=== PATIENT | female | born 1995 | race Hispanic/Latino ===

== ENCOUNTER 2018-09-03 12:12 | Observation (INO) | payer MEDICAID ==
[~2018-09-03] VITALS: Ht 149.9 cm; Wt 57.2 kg
[~2018-09-03 12:12] MED LIST: IBUP-2070 PO; PNV1TABL77 PO
[2018-09-03 13:46] LABS: APPEARANCE,URINE Cloudy (CLEAR); BILIRUBIN,URINE Negative (NEGATIVE); COLOR,URINE Dark Yellow (YELLOW); GLUCOSE, URINE (UA) Negative (NEGATIVE); KETONES,URINE Trace mg/dL (NEGATIVE); LEUKOCYTE ESTERASE ,URINE Small (NEGATIVE); NITRATE,URINE Negative (NEGATIVE); OCCULT BLOOD,URINE Trace (NEGATIVE); PH,URINE 6.5 (5.0-8.0); PROTEIN,URINE Negative (NEGATIVE)
[2018-09-03 13:53] LABS: BACTERIA,URINE Rare /HPF (None Seen); RBC,URINE 0-1 /HPF (0-1); SQUAMOUS EPITHELIAL CELL,UR Rare /HPF (0-2); WBC,URINE 0-1 /HPF (0-1)
[2018-09-03 13:54] LABS: AMPHET/METH SCREEN,URINE NEGATIVE (NEGATIVE); BARBITURATE SCREEN, URINE NEGATIVE (NEGATIVE); BENZODIAZEPINES SCREEN,URINE NEGATIVE (NEGATIVE); CANNABINOID SCREEN,URINE POSITIVE (NEGATIVE); COCAINE SCREEN,URINE POSITIVE (NEGATIVE); OPIATE SCREEN,URINE NEGATIVE (NEGATIVE); PHENCYCLIDINE SCREEN,URINE NEGATIVE (NEGATIVE)
[2018-09-03 15:12] VITALS: BP 103/67
== END 2018-09-03 15:15 | disposition home or self-care (01) ==
LOC: EDH 12:12 → LDH 12:13
PROVIDERS: ADMIT Obstetrics & Gynecology; ATTEND Obstetrics & Gynecology
DX: O48.0 Post-term pregnancy (principal); O99.323 Drug use complicating pregnancy, third trimester; F12.10 Cannabis abuse, uncomplicated; F14.10 Cocaine abuse, uncomplicated; Z3A.40 40 weeks gestation of pregnancy; Z79.899 Other long term (current) drug therapy
CPT/HCPCS: 76805; 80305; 81001; 99285; G0378 ×3; J7120; 96360; 96361

== ENCOUNTER 2018-09-04 15:35 | Inpatient (IN) | payer MEDICAID ==
[~2018-09-04] VITALS: Ht 149.9 cm; Wt 57.2 kg
[2018-09-04] MEDS ORDERED: LACTATED RINGERS 1000ML 1,000 ML IV PRN (15:48)
[2018-09-04] MEDS ORDERED: AMPICILLIN 2GM+NS 100ML 100 ML IV ONE (15:56)
[2018-09-04 15:58] LABS: HEMATOCRIT 32.2 % (36-48); MEAN CORPUSCULAR HEMOGLOBIN 27.6 pg (27.0-33.0); MEAN CORPUSCULAR HGB CONC 33.2 g/dL (32.0-36.0); MEAN CORPUSCULAR VOLUME 83.2 fL (79-99); PLATELET COUNT (AUTO) 275 K/uL (130-400); RED BLOOD CELL COUNT(AUTO) 3.87 MIL/uL (4.00-5.50); WHITE BLOOD COUNT (AUTO) 9.2 K/uL (4.8-10.8)
[2018-09-04] MEDS ORDERED: OXYTOCIN-LR 20 UNITS/1000 ML 1,000 ML IV SCH (16:00)
[2018-09-04 16:02] LABS: APPEARANCE,URINE Clear (CLEAR); BILIRUBIN,URINE Negative (NEGATIVE); COLOR,URINE Yellow (YELLOW); GLUCOSE, URINE (UA) Negative (NEGATIVE); KETONES,URINE Negative (NEGATIVE); LEUKOCYTE ESTERASE ,URINE Negative (NEGATIVE); NITRATE,URINE Negative (NEGATIVE); OCCULT BLOOD,URINE Negative (NEGATIVE); PROTEIN,URINE Negative (NEGATIVE)
[2018-09-04 16:08] LABS: AMPHET/METH SCREEN,URINE NEGATIVE (NEGATIVE); BARBITURATE SCREEN, URINE NEGATIVE (NEGATIVE); BENZODIAZEPINES SCREEN,URINE NEGATIVE (NEGATIVE); CANNABINOID SCREEN,URINE POSITIVE (NEGATIVE); COCAINE SCREEN,URINE POSITIVE (NEGATIVE); OPIATE SCREEN,URINE NEGATIVE (NEGATIVE); PHENCYCLIDINE SCREEN,URINE NEGATIVE (NEGATIVE)
[2018-09-04] MEDS ORDERED: LACTATED RINGERS 1000ML 1,000 ML IV ONE ×2 (16:08→17:20)
[2018-09-04] MEDS ORDERED: OXYTOCIN 10 USP UNITS/ML ONE ×3 (16:08→17:20)
[2018-09-04] MEDS ORDERED: LIDOCAINE HCL MPF 1% 5ML VIAL ONE (16:13)
[2018-09-04] MEDS ORDERED: AMPICILLIN 1GM+NS 50ML 50 ML IV SCH (16:30)
[2018-09-04] MEDS ORDERED: AMPICILLIN 2GM+NS 100ML 100 ML IV SCH (16:30)
[2018-09-04] MEDS ORDERED: DIPH,PERTUSS(ACELL),TET VAC/PF 0.5 ML VIAL IM PRN (17:00)
[2018-09-04] MEDS ORDERED: MEASLES/MUMPS/RUBELLA VACCINE, LIVE 0.5 ML/VIAL SQ PRN (17:00)
[2018-09-04] MEDS ORDERED: ACETAMINOPHEN 325 MG TAB PO PRN (17:00)
[2018-09-04] MEDS ORDERED: BENZOCAINE/LANOLIN/ALOE VERA 60 ML AEROSOL TP PRN (17:00)
[2018-09-04] MEDS ORDERED: LANOLIN 30GM OINTMENT TP PRN (17:00)
[2018-09-04] MEDS ORDERED: HYDROCODONE/ACETAMINOPHEN 5/325 MG TAB PO PRN (17:00)
[2018-09-04] MEDS ORDERED: WITCH HAZEL 1 PAD TP PRN (17:00)
[2018-09-04 18:05] VITALS: BP 115/82
[2018-09-04] MEDS: IBUPROFEN 600 MG TABLET PO PRN (18:50)
[2018-09-04 19:00] VITALS: BP 126/63
[2018-09-04] MEDS: DOCUSATE SODIUM 100 MG CAP PO SCH (21:14)
[2018-09-04 23:58] VITALS: BP 107/61
[2018-09-05] MEDS: IBUPROFEN 600 MG TABLET PO PRN (03:40)
[2018-09-05 04:00] VITALS: BP 114/63
[2018-09-05 07:16] LABS: HEMATOCRIT 28.6 % (36-48); MEAN CORPUSCULAR HEMOGLOBIN 28.1 pg (27.0-33.0); MEAN CORPUSCULAR HGB CONC 33.5 g/dL (32.0-36.0); MEAN CORPUSCULAR VOLUME 83.8 fL (79-99); PLATELET COUNT (AUTO) 261 K/uL (130-400); RED BLOOD CELL COUNT(AUTO) 3.41 MIL/uL (4.00-5.50); WHITE BLOOD COUNT (AUTO) 10.2 K/uL (4.8-10.8)
[2018-09-05 07:30] VITALS: BP 120/70
[2018-09-05 07:50] LABS: RAPID PLASMA REAGIN NONREACTIVE (NONREACTIVE)
[2018-09-05] MEDS: DOCUSATE SODIUM 100 MG CAP PO SCH (08:37)
[2018-09-05 11:17] VITALS: BP 109/69
[2018-09-05 15:49] VITALS: BP 105/68
[2018-09-06 07:31] LABS: HEPATITIS Bs ANTIGEN SCREEN P Negative (Negative)
== END 2018-09-05 17:50 | disposition home or self-care (01) | DRG 560 ==
LOC: EDH 15:35 → LDH 15:36 → OBSVTOIN 15:36 → WSH 17:59
PROVIDERS: ADMIT Obstetrics & Gynecology; ATTEND Obstetrics & Gynecology
PROC: 10E0XZZ Delivery of Products of Conception, External Approach (ICD-10-PCS; principal; 2018-09-04)
PROC: 0HQ9XZZ Repair Perineum Skin, External Approach (ICD-10-PCS; 2018-09-04)
PROC: 3E0234Z Introduction of Serum, Toxoid and Vaccine into Muscle, Percutaneous Approach (ICD-10-PCS; 2018-09-04)
PROC: 3E0134Z Introduction of Serum, Toxoid and Vaccine into Subcutaneous Tissue, Percutaneous Approach (ICD-10-PCS; 2018-09-04)
DX: O69.81X0 Labor and delivery complicated by cord around neck, without compression, not applicable or unspecified (principal); O62.2 Other uterine inertia; O70.0 First degree perineal laceration during delivery; Z37.0 Single live birth; Z3A.40 40 weeks gestation of pregnancy; Z23 Encounter for immunization
CPT/HCPCS: 36415; 76805; 80305; 81001; 81003; 85027; 86592; 86701; 86850; 86900; 86901; 87340; 87390; 96360; 96361; A4351; G0378; J0290; J2590; J3490; J7120

== ENCOUNTER 2019-09-30 23:33 | Emergency (ER) | payer MEDICAID, OTHER | END 2019-10-01 00:20 | LOC: EDH 23:33 | DX: F14.10 Cocaine abuse, uncomplicated (principal); R56.9 Unspecified convulsions; Z72.0 Tobacco use ==

== ENCOUNTER 2021-06-13 16:25 | Emergency (ER) | payer MEDICAID ==
[~2021-06-13] VITALS: Ht 147.3 cm; Wt 56.7 kg
[2021-06-13] MEDS ORDERED: DEXTROSE 5 % AND 0.9 % NACL 1,000 ML IV ONE ×2 (16:26→19:00)
[2021-06-13 16:36] VITALS: BP 100/45
[2021-06-13 17:21] LABS: EOSINOPHILS % (AUTO) 9.7 % (0.0-8.0); HEMATOCRIT 37.2 % (36-48); LYMPHOCYTES % (AUTO) 27.2 % (21.0-51.0); MEAN CORPUSCULAR HEMOGLOBIN 25.4 pg (27.0-33.0); MEAN CORPUSCULAR HGB CONC 31.2 g/dL (32.0-36.0); MEAN CORPUSCULAR VOLUME 81.4 fL (79-99); MONOCYTES % (AUTO) 7.7 % (3.0-13.0); NEUTROPHILS % (AUTO) 54.1 % (40.0-77.0); PLATELET COUNT (AUTO) 361 K/uL (130-400); RED BLOOD CELL COUNT(AUTO) 4.57 MIL/uL (4.00-5.50); RED CELL DISTRIBUTION WIDTH 18.9 % (11.0-15.5); WHITE BLOOD COUNT (AUTO) 7.7 K/uL (4.8-10.8)
[2021-06-13 17:22] LABS: APPEARANCE,URINE CLEAR (CLEAR); BILIRUBIN,URINE NEGATIVE (NEGATIVE); COLOR,URINE YELLOW (YELLOW); GLUCOSE, URINE (UA) NEGATIVE (NEGATIVE); KETONES,URINE NEGATIVE (NEGATIVE); LEUKOCYTE ESTERASE ,URINE MODERATE (NEGATIVE); NITRATE,URINE POSITIVE (NEGATIVE); OCCULT BLOOD,URINE TRACE-LYSED (NEGATIVE); PH,URINE 5.5 (5.0-8.0); PROTEIN,URINE NEGATIVE (NEGATIVE); UROBILINOGEN,URINE 0.2 mg/dL (0.2-1.0)
[2021-06-13 17:25] LABS: HCG,QUAL RESULT POSITIVE (NEGATIVE)
[2021-06-13 17:31] LABS: BACTERIA,URINE Moderate /HPF (None Seen); MUCUS,URINE Few LPF (None Seen); SQUAMOUS EPITHELIAL CELL,UR Few /HPF (0-2)
[2021-06-13 17:36] LABS: CREATININE 0.8 mg/dL (0.5-1.5)
[2021-06-13 17:41] LABS: ALBUMIN 3.4 g/dL (3.5-5.0); BILIRUBIN,TOTAL 0.2 mg/dL (0.2-1.0); TOTAL PROTEIN, SERUM 7.1 g/dL (6.0-8.3)
[2021-06-13 19:37] LABS: AMPHET/METH SCREEN,URINE POSITIVE (NEGATIVE); BARBITURATE SCREEN, URINE NEGATIVE (NEGATIVE); BENZODIAZEPINES SCREEN,URINE POSITIVE (NEGATIVE); CANNABINOID SCREEN,URINE POSITIVE (NEGATIVE); COCAINE SCREEN,URINE POSITIVE (NEGATIVE); OPIATE SCREEN,URINE NEGATIVE (NEGATIVE); PHENCYCLIDINE SCREEN,URINE NEGATIVE (NEGATIVE)
[2021-06-13 20:42] VITALS: BP 105/52
== END 2021-06-13 21:27 | disposition home or self-care (01) ==
LOC: EDH 16:25
DX: O99.891 Other specified diseases and conditions complicating pregnancy (principal); R41.82 Altered mental status, unspecified; F15.10 Other stimulant abuse, uncomplicated; F12.10 Cannabis abuse, uncomplicated; F14.10 Cocaine abuse, uncomplicated; F13.10 Sedative, hypnotic or anxiolytic abuse, uncomplicated; Z3A.01 Less than 8 weeks gestation of pregnancy
CPT/HCPCS: 36415; 80053; 80305; 81001; 81025; 85025; 87077; 87088; 87186; 96360; 99283; J3490; J7042